=== PATIENT | male | born 1960 | race Caucasian/White ===

== ENCOUNTER 2023-03-04 11:36 | Emergency (ER) | payer OTHER ==
[~2023-03-04] VITALS: Ht 177.8 cm; Wt 100.0 kg
[2023-03-04] MEDS ORDERED: LISINOPRIL 20 MG TAB PO ONE (12:00)
[2023-03-04 13:15] LABS: Basophils # (auto) 0.1 10 ^3/uL (0-0.2); Eosinophils # (auto) 0.1 10 ^3/uL (0-0.8); Neutrophils # (auto) 4.1 10 ^3/uL (1.6-8.6); Nucleated Red Blood Cells % 0.1 %; White Blood Cell 6.5 10^3/uL (4.4-10.8)
[2023-03-04 13:17] LABS: Basophils % (auto) 1.1 % (0.0-2.0); Eosinophils % (auto) 1.1 % (0.0-7.0); Hematocrit 41.5 % (41.0-53.0); Lymphocytes # (auto) 1.5 10 ^3/uL (0.4-5.4); Lymphocytes % (auto) 22.5 % (10.0-50.0); Mean Corpuscular Hemoglobin 37.8 pg (28.0-32.0); Mean Corpuscular Hgb Conc. 33.8 g/dL (32.0-36.0); Mean Corpuscular Volume 111.6 fL (80.0-100.0); Monocytes # (auto) 0.7 10 ^3/uL (0-1.3); Monocytes % (auto) 11.6 % (0.0-12.0); Neutrophils % (auto) 63.7 % (37.0-80.0); Red Blood Cells 3.71 10^6/uL (4.5-5.90); Red Cell Distribution Width 15.2 % (11.8-14.3)
[2023-03-04 13:43] LABS: Urine Bacteria NONE SEEN /hpf (None Seen); Urine Blood Negative /uL (Negative); Urine Clarity Clear (Clear); Urine Color Yellow (Yellow); Urine Protein, UAD Negative (Negative); Urine Specific Gravity 1.009 (1.001-1.035); Urine WBC 1 /hpf (0 - 3); Urine pH 7.5 (5.0-8.0)
[2023-03-04 13:49] LABS: Alanine Aminotransferase 38 U/L (7-40); Albumin 3.5 g/dL (3.2-4.8); Alkaline Phosphatase 179 U/L (46-116); Anion Gap 10.7 (5-15); Aspartate Aminotransferase 89 U/L (13-40); BUN/Creatinine Ratio 11.1 (10.0-20.0); Blood Urea Nitrogen 7 mg/dL (9-23); Calcium 8.6 mg/dL (8.5-10.1); Carbon Dioxide 22.3 mmol/L (20-30); Chloride 106 mmol/L (98-107); Glucose 99 mg/dL (74-106); Potassium 3.6 mmol/L (3.5-5.1); Sodium 139 mmol/L (136-145)
[2023-03-04 13:50] LABS: Bilirubin, Total 6.3 mg/dL (0.2-1.0)
[2023-03-04 13:58] LABS: Erythrocyte Sedimentation Rate 7 mm/hr (0-20)
[2023-03-04] MEDS ORDERED: FUROSEMIDE 100 MG/10ML VIAL IV ONE (14:45)
[2023-03-04 19:24] VITALS: BP 183/88; PULSE 73; RESP 18; TEMP 98.1; O2SAT 95
== END 2023-03-04 17:25 | disposition left against medical advice (07) ==
LOC: ER 11:36
DX: K70.31 Alcoholic cirrhosis of liver with ascites (principal); K46.9 Unspecified abdominal hernia without obstruction or gangrene; R94.09 Abnormal results of other function studies of central nervous system; R79.89 Other specified abnormal findings of blood chemistry; R60.0 Localized edema; R16.1 Splenomegaly, not elsewhere classified; K42.9 Umbilical hernia without obstruction or gangrene; R91.1 Solitary pulmonary nodule; D69.6 Thrombocytopenia, unspecified; E80.6 Other disorders of bilirubin metabolism; I10 Essential (primary) hypertension
CPT/HCPCS: 36415; 71045; 74176; 80053; 81001; 83605; 83880; 84484; 85025; 85652; 86141; 93970; 96374; 99285; J1940

== ENCOUNTER 2023-10-22 16:17 | Inpatient (IN) | payer MEDICAID, OTHER ==
[~2023-10-22] VITALS: Ht 172.7 cm; Wt 74.0 kg
[2023-10-22] MEDS: THIAMINE 100mg/ml INJ (200mg/2ml VIAL) IV ONE (17:11)
[2023-10-22] MEDS: LORazepam 2MG/ML-1ML VIAL IV ONE ×2 (17:11→17:15)
[2023-10-22] MEDS: MAGNESIUM SULFATE 1GM/100ML 100 ML IV ONE (17:12)
[2023-10-22] MEDS: SODIUM CHLORIDE 0.9% 1,000 ML IV ONE (17:12)
[2023-10-22 17:36] LABS: Basophils # (auto) 0 10 ^3/uL (0-0.2); Eosinophils # (auto) 0 10 ^3/uL (0-0.8); Lymphocytes # (auto) 0.4 10 ^3/uL (0.4-5.4); Neutrophils # (auto) 6.5 10 ^3/uL (1.6-8.6); Nucleated Red Blood Cells % 0.1 %
[2023-10-22 17:38] LABS: Basophils % (auto) 0.2 % (0.0-2.0); Eosinophils % (auto) 0.2 % (0.0-7.0); Hematocrit 41.3 % (41.0-53.0); Hemoglobin 14.3 g/dL (13.5-17.5); Lymphocytes % (auto) 5.4 % (10.0-50.0); Mean Corpuscular Hgb Conc. 34.8 g/dL (32.0-36.0); Mean Corpuscular Volume 109.3 fL (80.0-100.0); Monocytes # (auto) 0.7 10 ^3/uL (0-1.3); Monocytes % (auto) 9.3 % (0.0-12.0); Neutrophils % (auto) 84.9 % (37.0-80.0); Red Blood Cells 3.78 10^6/uL (4.5-5.90); Red Cell Distribution Width 15.9 % (11.8-14.3); White Blood Cell 7.6 10^3/uL (4.4-10.8)
[2023-10-22 17:53] LABS: Alanine Aminotransferase 61 U/L (7-40); Albumin 2.9 g/dL (3.2-4.8); Alkaline Phosphatase 118 U/L (46-116); Anion Gap 19 (5-15); Aspartate Aminotransferase 203 U/L (13-40); BUN/Creatinine Ratio 16.1 (10.0-20.0); Bilirubin, Total 8.8 mg/dL (0.2-1.0); Blood Alcohol < 3.0 mg/dL (<10); Blood Urea Nitrogen 67 mg/dL (9-23); Calcium 8.1 mg/dL (8.5-10.1); Carbon Dioxide 16 mmol/L (20-30); Chloride 103 mmol/L (98-107); Glucose 85 mg/dL (74-106); Potassium 3.1 mmol/L (3.5-5.1); Sodium 138 mmol/L (136-145); Total Protein 6.4 g/dL (5.7-8.2)
[2023-10-22] MEDS: FUROSEMIDE 20 MG/2 ML VIAL IV ONE ×2 (18:00→22:10)
[2023-10-22] MEDS: PIPERACILLIN-TAZOB 3.375GM 100 ML IV ONE (18:30)
[2023-10-22 18:33] LABS: INR 1.69 (0.9-1.15); Partial Thromboplastin Time 35.9 SEC (24.5-34.5); Prothrombin Time 17.1 sec (9.3-11.8)
[2023-10-22] MEDS: levETIRAcetam 500 mg/100ml 100 ML IV ONE (18:43)
[2023-10-22 18:45] VITALS: PULSE 93; RESP 19; O2SAT 92
[2023-10-22 18:45] LABS: Macrocytosis Slight; Platelet Estimate Decreased
[2023-10-22 19:02] LABS: Magnesium 1.6 mg/dL (1.6-2.6)
[2023-10-22 19:30] VITALS: PULSE 89; RESP 24; O2SAT 95
[2023-10-22] MEDS: dilTIAZem 25 MG/5 ML VIAL IV ONE (20:10)
[2023-10-22] MEDS ORDERED: ACETAMINOPHEN 325 MG TAB PO PRN (21:45)
[2023-10-22] MEDS ORDERED: DOCUSATE SOD 100 MG CAP PO PRN (21:45)
[2023-10-22] MEDS ORDERED: ONDANSETRON HCL 4 MG/2 ML VIAL IV PRN (21:45)
[2023-10-22] MEDS: SODIUM CHLOR 0.9% PF (SALINE LOCK) 10ML VIAL/SYR IV SCH (22:00)
[2023-10-22] MEDS: levETIRAcetam 500 mg/100ml 100 ML IV SCH (22:08)
[2023-10-22] MEDS: CARVEDILOL 12.5 MG TAB PO SCH (22:11)
[2023-10-22 22:13] LABS: Amphetamine Screen, Urine Neg (NEGATIVE); Barbiturate Scree,Urine Neg (NEGATIVE); Benzodiazephine Screen, Urine Neg (NEGATIVE); Cannabinoid Screen, Urine Neg (NEGATIVE); Cocaine Screen, Urine Neg (NEGATIVE); Opiate Scree,Urine Neg (NEGATIVE); Phencyclidine Screen, Urine Neg (NEGATIVE)
[2023-10-22] MEDS ORDERED: NITROGLYCERIN 0.4 MG SL TAB SL PRN (22:30)
[2023-10-22] MEDS ORDERED: IBUPROFEN 600 MG TAB PO PRN (22:45)
[2023-10-22] MEDS: CALCIUM GLUC 1,000mg/50ml-NS 50 ML IV ONE (22:56)
[2023-10-23] MEDS: LORazepam 2MG/ML-1ML VIAL IV PRN (00:54)
[2023-10-23 05:13] LABS: Basophils # (auto) 0 10 ^3/uL (0-0.2); Eosinophils # (auto) 0.1 10 ^3/uL (0-0.8); Lymphocytes # (auto) 0.9 10 ^3/uL (0.4-5.4); Nucleated Red Blood Cells % 0.1 %; White Blood Cell 7.1 10^3/uL (4.4-10.8)
[2023-10-23 05:15] LABS: Basophils % (auto) 0.4 % (0.0-2.0); Hematocrit 37.9 % (41.0-53.0); Hemoglobin 12.7 g/dL (13.5-17.5); Lymphocytes % (auto) 12.2 % (10.0-50.0); Mean Corpuscular Hemoglobin 36.8 pg (28.0-32.0); Mean Corpuscular Hgb Conc. 33.4 g/dL (32.0-36.0); Mean Corpuscular Volume 110.2 fL (80.0-100.0); Monocytes # (auto) 0.7 10 ^3/uL (0-1.3); Monocytes % (auto) 10.5 % (0.0-12.0); Neutrophils # (auto) 5.4 10 ^3/uL (1.6-8.6); Neutrophils % (auto) 75.9 % (37.0-80.0); Red Blood Cells 3.44 10^6/uL (4.5-5.90); Red Cell Distribution Width 16.2 % (11.8-14.3)
[2023-10-23 05:31] LABS: Alanine Aminotransferase 51 U/L (7-40); Albumin 2.6 g/dL (3.2-4.8); Alkaline Phosphatase 99 U/L (46-116); Anion Gap 10 (5-15); Aspartate Aminotransferase 163 U/L (13-40); Bilirubin, Total 8.1 mg/dL (0.2-1.0); Blood Urea Nitrogen 61 mg/dL (9-23); Calcium 8.1 mg/dL (8.7-10.4); Carbon Dioxide 19 mmol/L (20-30); Chloride 108 mmol/L (98-107); Glucose 90 mg/dL (74-106); Potassium 3.3 mmol/L (3.5-5.1); Sodium 137 mmol/L (136-145); Total Protein 6.3 g/dL (5.7-8.2)
[2023-10-23 05:33] LABS: BUN/Creatinine Ratio 13.8 (10.0-20.0)
[2023-10-23 09:00] VITALS: PULSE 57; RESP 16; O2SAT 98
[2023-10-23 09:20] LABS: Magnesium 1.9 mg/dL (1.6-2.6)
[2023-10-23] MEDS: THIAMINE HCL 100 MG TAB PO SCH (09:42)
[2023-10-23] MEDS: B-COMPLEX W/ C & FOLIC ACID(NEPHROVITE TAB) PO SCH (09:42)
[2023-10-23] MEDS: FAMOTIDINE (10MG/ML) 2ML VL IV SCH (09:42)
[2023-10-23] MEDS: FOLIC ACID 1 MG TAB PO SCH (09:42)
[2023-10-23] MEDS: AMIODARONE HCL 200 MG TAB PO SCH (09:43)
[2023-10-23] MEDS: FUROSEMIDE 40 MG/4 ML VIAL IV SCH (10:00)
[2023-10-23] MEDS ORDERED: ASPirin 81 mg TAB PO SCH (10:00)
[2023-10-23 11:11] LABS: Protein, Urine 213.1 mg/dL (0.0-11.9)
[2023-10-23 11:22] LABS: Creatinine, Urine 245.79 mg/dL (30.0-125.0); Urine Protein/Creatinine Ratio 0.87
[2023-10-23] MEDS: POTASSIUM CHLORIDE 20 MEQ, LIDOCAINE 1% (LOCAL ANESTH.) 2 ML in SODIUM CHL 0.9% 100 ML IV ONE (11:49)
[2023-10-23] MEDS: MIDODRINE HCL 10 MG TAB PO SCH (12:00)
[2023-10-23 12:09] LABS: Urine Bacteria FEW /hpf (None Seen); Urine Blood 3+ /uL (Negative); Urine Budding Yeast FEW /hpf (None Seen); Urine Clarity Ex.Turbid (Clear); Urine Color Dark-Yellow (Yellow); Urine Hyaline Cast FEW /lpf (0 - 2); Urine Mucus FEW (None Seen); Urine Protein, UAD 2+ (Negative); Urine Specific Gravity 1.019 (1.001-1.035); Urine Urobilinogen 2 mg/dL (Negative); Urine WBC 24 /hpf (0 - 3); Urine pH 5.5 (5.0-9.0)
[2023-10-23] MEDS: D5W/SOD CHLO 0.9% 1,000 ML IV SCH (14:00)
[2023-10-23] MEDS: OCTREOTIDE ACETATE 100 MCG/ML VL SUBCUT SCH (14:05)
[2023-10-23] MEDS: ALBUMIN 25% 100 ML IV ONE (16:40)
[2023-10-23] MEDS: FOLIC ACID 1 MG, MAGNESIUM SULF SDV 50% 8 MEQ, MULTIPLE VITAMIN 10 ML, THIAMINE INJ 100... INJ SCH (18:29)
[2023-10-23 19:30] VITALS: PULSE 56; RESP 18; O2SAT 99
[2023-10-24 08:00] VITALS: PULSE 54; RESP 18; O2SAT 96
[2023-10-24] MEDS: D5W/SOD CHLO 0.9% 1,000 ML IV SCH (11:01)
[2023-10-24] MEDS: cefTRIAXone 1GM/50ML D5W 50 ML IV ONE (11:06)
[2023-10-24] MEDS: THIAMINE 100mg/ml INJ (200mg/2ml VIAL) IM ONE (11:08)
[2023-10-24] MEDS: phytonadione 2.5 MG in SODIUM CHL 0.9% 50 ML IV ONE (12:35)
[2023-10-24] MEDS: LACTULOSE 20Gm/30ML SOLN NG SCH (13:39)
[2023-10-24] MEDS: DOPamine 1600MCG/ML D5W 250 ML IV SCH (13:52)
[2023-10-24 19:45] VITALS: PULSE 61; RESP 16; O2SAT 98
[2023-10-24] MEDS ORDERED: LACTULOSE 20Gm/30ML SOLN PO SCH (22:00)
[2023-10-25 06:59] LABS: Basophils # (auto) 0 10 ^3/uL (0-0.2); Basophils % (auto) 0.7 % (0.0-2.0); Eosinophils # (auto) 0.2 10 ^3/uL (0-0.8); Lymphocytes # (auto) 0.8 10 ^3/uL (0.4-5.4); Monocytes # (auto) 1.1 10 ^3/uL (0-1.3); Neutrophils # (auto) 4.1 10 ^3/uL (1.6-8.6)
[2023-10-25 07:02] LABS: Eosinophils % (auto) 3.7 % (0.0-7.0); Lymphocytes % (auto) 12.5 % (10.0-50.0); Mean Corpuscular Hemoglobin 37.1 pg (28.0-32.0); Mean Corpuscular Hgb Conc. 33.2 g/dL (32.0-36.0); Mean Corpuscular Volume 111.8 fL (80.0-100.0); Monocytes % (auto) 17.7 % (0.0-12.0); Neutrophils % (auto) 65.4 % (37.0-80.0); Nucleated Red Blood Cells % 0.1 %; Red Blood Cells 3.49 10^6/uL (4.5-5.90); Red Cell Distribution Width 16.5 % (11.8-14.3); White Blood Cell 6.2 10^3/uL (4.4-10.8)
[2023-10-25 07:20] LABS: Alanine Aminotransferase 58 U/L (7-40); Alkaline Phosphatase 102 U/L (46-116); Anion Gap 14 (5-15); Aspartate Aminotransferase 144 U/L (13-40); BUN/Creatinine Ratio 20.9 (10.0-20.0); Calcium 7.5 mg/dL (8.5-10.1); Carbon Dioxide 16 mmol/L (20-30); Chloride 115 mmol/L (98-107); Glucose 143 mg/dL (74-106)
[2023-10-25 07:21] LABS: Bilirubin, Total 8.4 mg/dL (0.2-1.0); Total Protein 6.5 g/dL (5.7-8.2)
[2023-10-25 07:30] VITALS: PULSE 65; RESP 18; O2SAT 93
[2023-10-25 07:32] LABS: Blood Urea Nitrogen 88 mg/dL (9-23); Sodium 145 mmol/L (136-145)
[2023-10-25 07:34] LABS: INR 1.36 (0.9-1.15)
[2023-10-25] MEDS: D5W/SOD CHLO 0.9% 1,000 ML IV SCH ×2 (09:00→10:00)
[2023-10-25 09:09] LABS: Base Excess -10.8 mmol/L (-2.0-2.0)
[2023-10-25] MEDS: cefTRIAXone 1GM/50ML D5W 50 ML IV SCH (09:57)
[2023-10-25] MEDS: LACTULOSE 20Gm/30ML SOLN NG SCH (09:58)
[2023-10-25] MEDS: FUROSEMIDE 40 MG/4 ML VIAL IV ONE (09:59)
[2023-10-25] MEDS: AZITHROMYCIN 500MG/ 250ML 250 ML IV SCH (10:37)
[2023-10-25] MEDS: chlordiazePOXIDE HCL 5 MG CAP PO SCH (12:00)
[2023-10-25] MEDS: D5W/SOD CHL 0.45% 1,000 ML IV SCH (14:00)
[2023-10-25] MEDS: PHYTONADIONE (VIT K)10 MG/ML 1ML VIAL SUBCUT SCH (14:32)
[2023-10-25] MEDS: SODIUM BICARB 50mEq/50ml Vial 50 ML in D5W/SOD CHL 0.45% 1,000 ML IV SCH (15:00)
[2023-10-25 19:40] VITALS: PULSE 58; RESP 13; O2SAT 100
[2023-10-25] MEDS: MORPHINE SULFATE INJ 2 MG/ml SYRG IV PRN (22:45)
[2023-10-26 04:48] LABS: Hematocrit 38.1 % (41.0-53.0); Hemoglobin 12.5 g/dL (13.5-17.5); Mean Corpuscular Hgb Conc. 32.8 g/dL (32.0-36.0); Mean Corpuscular Volume 112.8 fL (80.0-100.0); Red Blood Cells 3.37 10^6/uL (4.5-5.90); White Blood Cell 6.7 10^3/uL (4.4-10.8)
[2023-10-26 04:50] LABS: Basophils % (manual) 0 (0.0-2.0); Blast Cells 0; Metamyelocytes % 0; Myelocytes % 0; Promyelocytes % 0; Reactive Lymphocytes 0
[2023-10-26 04:56] LABS: INR 1.39 (0.9-1.15); Prothrombin Time 14.3 sec (9.3-11.8)
[2023-10-26 05:03] LABS: Alanine Aminotransferase 70 U/L (7-40); Alkaline Phosphatase 104 U/L (46-116); Anion Gap 13 (5-15); Calcium 7.6 mg/dL (8.5-10.1); Carbon Dioxide 19 mmol/L (20-30); Chloride 117 mmol/L (98-107); Glucose 119 mg/dL (74-106); Sodium 149 mmol/L (136-145)
[2023-10-26 05:05] LABS: Albumin 2.9 g/dL (3.2-4.8); Aspartate Aminotransferase 160 U/L (13-40); Bilirubin, Total 10.1 mg/dL (0.2-1.0); Creatine Kinase IFCC 735 U/L (46-171); Total Protein 6.8 g/dL (5.7-8.2)
[2023-10-26 05:20] LABS: BUN/Creatinine Ratio 22.6 (10.0-20.0)
[2023-10-26 05:24] LABS: Blood Urea Nitrogen 78 mg/dL (9-23)
[2023-10-26 06:27] LABS: Band Neutrophils % (manual) 3; Eosinophils % (manual) 3 (0-7); Lymphocytes % (manual) 11 (10.0-50.0); Macrocytosis Marked; Monocytes % (manual) 19 (0-12); Platelet Estimate Decreased
[2023-10-26 08:24] VITALS: PULSE 56; RESP 14; O2SAT 99
[2023-10-26 08:39] LABS: Hepatitis B Surface Antigen Negative (Negative)
[2023-10-26 09:01] LABS: Hepatitis C Antibody Negative (Negative)
[2023-10-26 09:08] LABS: Hepatitis B Core Total AB Negative (Negative)
[2023-10-26 09:41] LABS: Hepatitis A Total Antibody Positive (Negative); Hepatitis B Surface Antibody Negative (Negative); Hepatitis B Surface Antigen Negative (Negative); Hepatitis C Antibody Negative (Negative)
[2023-10-26] MEDS: ALBUMIN 25% 50 ML IV SCH (10:57)
[2023-10-26 19:35] VITALS: PULSE 54; RESP 12; O2SAT 99
[2023-10-27 04:52] LABS: Anion Gap 8 (5-15); Carbon Dioxide 20 mmol/L (20-30); Chloride 122 mmol/L (98-107); Potassium 4.1 mmol/L (3.5-5.1); Sodium 150 mmol/L (136-145)
[2023-10-27 04:58] LABS: Glucose 132 mg/dL (74-106)
[2023-10-27 05:01] LABS: Blood Urea Nitrogen 67 mg/dL (9-23)
[2023-10-27 05:07] LABS: BUN/Creatinine Ratio 24.2 (10.0-20.0)
[2023-10-27 07:35] VITALS: PULSE 58; RESP 16; O2SAT 98
[2023-10-27] MEDS: THIAMINE 100mg/ml INJ (200mg/2ml VIAL) IV SCH (10:39)
[2023-10-27] MEDS: FOLIC ACID 1 MG in D5W 5% 50 ML INJ SCH (10:40)
[2023-10-27] MEDS: D5W 5% 1,000 ML IV SCH (14:05)
[2023-10-27] MEDS ORDERED: LORazepam 2MG/ML-1ML VIAL IV PRN (14:45)
[2023-10-27 19:45] VITALS: PULSE 58; RESP 12; O2SAT 95
[2023-10-27] MEDS: LACTULOSE 10g/15ml SOLN 473ML PR SCH (23:51)
[2023-10-28 05:22] LABS: Chloride 124 mmol/L (98-107); Sodium 154 mmol/L (136-145)
[2023-10-28 05:23] LABS: Anion Gap 8 (5-15); Calcium 8.3 mg/dL (8.7-10.4); Carbon Dioxide 22 mmol/L (20-30)
[2023-10-28 05:28] LABS: Blood Urea Nitrogen 60 mg/dL (9-23); Glucose 148 mg/dL (74-106)
[2023-10-28] MEDS ORDERED: LORazepam 2MG/ML-1ML VIAL IV PRN (05:30)
[2023-10-28] MEDS: LORazepam 2MG/ML-1ML VIAL IV PRN (05:35)
[2023-10-28] MEDS: cefTRIAXone 1GM/50ML D5W 50 ML IV ONE (09:23)
[2023-10-28 10:28] VITALS: O2SAT 96
[2023-10-28] MEDS: D5W 5% 1,000 ML IV SCH (17:18)
[2023-10-28 19:30] VITALS: PULSE 53; RESP 11; O2SAT 98
[2023-10-29 05:29] LABS: Chloride 124 mmol/L (98-107); Potassium 3.9 mmol/L (3.5-5.1); Sodium 156 mmol/L (136-145)
[2023-10-29 05:35] LABS: Calcium 8.3 mg/dL (8.5-10.1)
[2023-10-29 05:40] LABS: Blood Urea Nitrogen 58 mg/dL (9-23); Glucose 139 mg/dL (74-106)
[2023-10-29 05:56] LABS: BUN/Creatinine Ratio 28.3 (10.0-20.0)
[2023-10-29 06:53] LABS: Anion Gap 8 (5-15); Carbon Dioxide 24 mmol/L (20-30)
[2023-10-29 08:00] VITALS: PULSE 74; RESP 24; O2SAT 98
[2023-10-29] MEDS: D5W 5% 1,000 ML IV SCH (08:00)
[2023-10-29] MEDS: LACTULOSE 20Gm/30ML SOLN PO SCH (13:33)
[2023-10-29 19:30] VITALS: PULSE 64; RESP 21; O2SAT 92
[2023-10-29 22:45] VITALS: BP 125/70; PULSE 52; RESP 18; TEMP 98.2; O2SAT 92
[2023-10-29 23:56] VITALS: BP 125/70; PULSE 55; RESP 18; TEMP 98.2; O2SAT 92
[2023-10-30] VITALS (7 sets, daily range): BP systolic 122–167; BP diastolic 51–111; PULSE 59–73; RESP 17–20; TEMP 97.8–98.2; O2SAT 93–96
[2023-10-30] MEDS ORDERED: LISI-285 PO (00:50)
[2023-10-30] MEDS: OCTREOTIDE ACETATE 100 MCG/ML VL SUBCUT SCH (00:52)
[2023-10-30 05:52] LABS: Anion Gap 10 (5-15); Carbon Dioxide 23 mmol/L (20-30); Chloride 120 mmol/L (98-107); Potassium 3.8 mmol/L (3.5-5.1); Sodium 153 mmol/L (136-145)
[2023-10-30 05:54] LABS: Calcium 8.6 mg/dL (8.7-10.4)
[2023-10-30 05:59] LABS: Glucose 134 mg/dL (74-106)
[2023-10-30 06:05] LABS: BUN/Creatinine Ratio 30.7 (10.0-20.0); Blood Urea Nitrogen 54 mg/dL (9-23)
[2023-10-30] MEDS: HYDROcodone-ACET 5/325MG TAB PO PRN (16:01)
[2023-10-31] VITALS (8 sets, daily range): BP systolic 146–178; BP diastolic 70–86; PULSE 61–66; RESP 18–20; TEMP 98.3–98.9; O2SAT 95–97
[2023-10-31 10:46] LABS: Basophils # (auto) 0.1 10 ^3/uL (0-0.2); Basophils % (auto) 0.9 % (0.0-2.0); Eosinophils # (auto) 0.3 10 ^3/uL (0-0.8); Eosinophils % (auto) 2.5 % (0.0-7.0); Hematocrit 38.2 % (41.0-53.0); Hemoglobin 12.8 g/dL (13.5-17.5); Lymphocytes % (auto) 9.5 % (10.0-50.0); Mean Corpuscular Hemoglobin 37.3 pg (28.0-32.0); Mean Corpuscular Hgb Conc. 33.5 g/dL (32.0-36.0); Mean Corpuscular Volume 111.5 fL (80.0-100.0); Monocytes % (auto) 9.1 % (0.0-12.0); Neutrophils # (auto) 8.5 10 ^3/uL (1.6-8.6); Nucleated Red Blood Cells % 0.2 %; Red Blood Cells 3.42 10^6/uL (4.5-5.90); Red Cell Distribution Width 17.7 % (11.8-14.3); White Blood Cell 10.9 10^3/uL (4.4-10.8)
[2023-10-31 11:03] LABS: Albumin 2.7 g/dL (3.2-4.8); Alkaline Phosphatase 98 U/L (46-116); Anion Gap 8 (5-15); Bilirubin, Total 25.2 mg/dL (0.2-1.0); Calcium 8.7 mg/dL (8.7-10.4); Carbon Dioxide 22 mmol/L (20-30); Chloride 122 mmol/L (98-107); Glucose 123 mg/dL (74-106); Potassium 4.1 mmol/L (3.5-5.1); Sodium 152 mmol/L (136-145)
[2023-10-31 11:08] LABS: Alanine Aminotransferase 97 U/L (7-40); Aspartate Aminotransferase 197 U/L (13-40); BUN/Creatinine Ratio 23.3 (10.0-20.0); Total Protein 6.6 g/dL (5.7-8.2)
[2023-10-31 11:14] LABS: Blood Urea Nitrogen 35 mg/dL (9-23)
[2023-10-31 12:28] LABS: Macrocytosis Marked; Platelet Estimate Decreased
[2023-11-01] VITALS (11 sets, daily range): BP systolic 122–167; BP diastolic 40–87; PULSE 59–69; RESP 20–24; TEMP 97–99.3; O2SAT 93–95
[2023-11-01 06:12] LABS: Anion Gap 9 (5-15); Carbon Dioxide 22 mmol/L (20-30); Chloride 123 mmol/L (98-107); Potassium 3.7 mmol/L (3.5-5.1); Sodium 154 mmol/L (136-145)
[2023-11-01 06:13] LABS: Calcium 8.7 mg/dL (8.7-10.4)
[2023-11-01 06:18] LABS: Glucose 94 mg/dL (74-106)
[2023-11-01 08:32] LABS: BUN/Creatinine Ratio 18.1 (10.0-20.0); Blood Urea Nitrogen 29 mg/dL (9-23)
[2023-11-01] MEDS: D5W 5% 1,000 ML IV SCH (15:00)
[2023-11-02 05:00] VITALS: BP 178/75; PULSE 61; RESP 20; TEMP 98.2; O2SAT 92
[2023-11-02 09:23] VITALS: BP 174/58; PULSE 56; RESP 20; TEMP 98; O2SAT 95
[2023-11-02 12:53] LABS: Basophils # (auto) 0.2 10 ^3/uL (0-0.2); Eosinophils # (auto) 0.3 10 ^3/uL (0-0.8); Hemoglobin 12.6 g/dL (13.5-17.5); Monocytes # (auto) 1.5 10 ^3/uL (0-1.3); Monocytes % (auto) 11.9 % (0.0-12.0); Red Cell Distribution Width 18.6 % (11.8-14.3)
[2023-11-02 13:00] VITALS: BP 133/65; PULSE 59; RESP 20; TEMP 98.1; O2SAT 95
[2023-11-02 13:14] LABS: Basophils % (auto) 1.9 % (0.0-2.0); Eosinophils % (auto) 2.5 % (0.0-7.0); Hematocrit 37.8 % (41.0-53.0); Lymphocytes # (auto) 1.2 10 ^3/uL (0.4-5.4); Lymphocytes % (auto) 9.1 % (10.0-50.0); Mean Corpuscular Hemoglobin 37.2 pg (28.0-32.0); Mean Corpuscular Hgb Conc. 33.3 g/dL (32.0-36.0); Mean Corpuscular Volume 111.8 fL (80.0-100.0); Neutrophils # (auto) 9.5 10 ^3/uL (1.6-8.6); Neutrophils % (auto) 74.6 % (37.0-80.0); Nucleated Red Blood Cells % 0.1 %; Red Blood Cells 3.38 10^6/uL (4.5-5.90); White Blood Cell 12.7 10^3/uL (4.4-10.8)
[2023-11-02 13:26] LABS: Albumin 2.5 g/dL (3.2-4.8); Alkaline Phosphatase 103 U/L (46-116); Anion Gap 8 (5-15); Calcium 8.4 mg/dL (8.5-10.1); Carbon Dioxide 21 mmol/L (20-30); Chloride 119 mmol/L (98-107); Glucose 160 mg/dL (74-106); Potassium 3.3 mmol/L (3.5-5.1)
[2023-11-02 13:27] LABS: Bilirubin, Total 29.3 mg/dL (0.2-1.0)
[2023-11-02 13:37] LABS: Alanine Aminotransferase 89 U/L (7-40); Aspartate Aminotransferase 191 U/L (13-40); BUN/Creatinine Ratio 15.6 (10.0-20.0); Blood Urea Nitrogen 26 mg/dL (9-23); Total Protein 6.4 g/dL (5.7-8.2)
[2023-11-02 13:42] LABS: Sodium 148 mmol/L (136-145)
[2023-11-02 17:00] VITALS: BP 139/55; PULSE 60; RESP 18; O2SAT 93
[2023-11-02 20:00] VITALS: BP 120/54; PULSE 58; RESP 17; TEMP 98.2; O2SAT 96
[2023-11-02 21:52] VITALS: BP 120/54; PULSE 53; RESP 17; TEMP 98.1; O2SAT 96
[2023-11-03 01:00] VITALS: BP 136/64; PULSE 59; RESP 18; TEMP 98.1; O2SAT 95
[2023-11-03] MEDS: OCTREOTIDE ACETATE 100 MCG/ML VL ONE (06:54)
[2023-11-03 09:00] VITALS: BP 156/71; PULSE 58; RESP 19; TEMP 98; O2SAT 94
[2023-11-03 13:00] VITALS: BP 125/46; PULSE 51; RESP 18; TEMP 98; O2SAT 94
[2023-11-03] MEDS: POTASSIUM CHL 20 Meq TABLET PO ONE (13:51)
[2023-11-03 17:00] VITALS: BP 124/57; PULSE 57; RESP 18; TEMP 97.4; O2SAT 97
[2023-11-03 20:00] VITALS: PULSE 64
[2023-11-03 21:00] VITALS: BP 155/78; PULSE 21; RESP 61; TEMP 98; O2SAT 94
[2023-11-04] VITALS (7 sets, daily range): BP systolic 123–154; BP diastolic 54–72; PULSE 52–63; RESP 17–20; TEMP 97.3–98.6; O2SAT 93–97
[2023-11-04 07:00] LABS: INR 1.56 (0.9-1.15)
[2023-11-04 07:05] LABS: Albumin 2.4 g/dL (3.2-4.8); Alkaline Phosphatase 112 U/L (46-116); Anion Gap 8 (5-15); Bilirubin, Total 29.3 mg/dL (0.2-1.0); Calcium 8.4 mg/dL (8.5-10.1); Carbon Dioxide 22 mmol/L (20-30); Chloride 115 mmol/L (98-107); Glucose 119 mg/dL (74-106); Potassium 3.5 mmol/L (3.5-5.1); Sodium 145 mmol/L (136-145)
[2023-11-04 07:32] LABS: Alanine Aminotransferase 86 U/L (7-40); Aspartate Aminotransferase 202 U/L (13-40); BUN/Creatinine Ratio 12.4 (10.0-20.0); Blood Urea Nitrogen 26 mg/dL (9-23); Total Protein 6.3 g/dL (5.7-8.2)
[2023-11-04] MEDS: methylPREDNISolone SOD SUCC 40 MG/ML VL IV SCH (09:20)
[2023-11-04] MEDS: POTASSIUM CHL 20 Meq TABLET PO SCH (09:25)
[2023-11-04] MEDS: URSODIOL 300 MG CAP PO SCH (22:00)
[2023-11-05 05:00] VITALS: BP 129/58; PULSE 56; RESP 16; TEMP 97.8; O2SAT 98
[2023-11-05] MEDS ORDERED: FOLI-119 PO (10:51)
[2023-11-05] MEDS ORDERED: THIA100T13 PO (10:51)
[2023-11-05] MEDS ORDERED: CHL25C PO (10:51)
[2023-11-05] MEDS ORDERED: MIDO10TA3 PO (10:51)
[2023-11-05] MEDS ORDERED: URSO300C2 PO (10:51)
[2023-11-05] MEDS ORDERED: PANT40T PO (10:51)
[2023-11-05] MEDS ORDERED: PRED20TA2 PO (10:51)
[2023-11-05] MEDS ORDERED: AMIO200T33 PO (10:51)
[2023-11-05] MEDS ORDERED: PAR20T PO (10:51)
[2023-11-05] MEDS ORDERED: LACT10PA2 PO (10:56)
[2023-11-05 13:00] VITALS: BP 147/72; PULSE 56; RESP 17; TEMP 98
== END 2023-11-05 20:10 | disposition hospice, home (50) | DRG 100 ==
LOC: ER 16:17 → EDBD 16:17 → TELE 22:17 → WEST WING 10-29 22:20
PROVIDERS: ADMIT Family Medicine; ATTEND Family Medicine
DX: G40.401 Other generalized epilepsy and epileptic syndromes, not intractable, with status epilepticus (principal); E43 Unspecified severe protein-calorie malnutrition; G93.41 Metabolic encephalopathy; K76.7 Hepatorenal syndrome; D68.9 Coagulation defect, unspecified; N17.9 Acute kidney failure, unspecified; M62.82 Rhabdomyolysis; N39.0 Urinary tract infection, site not specified; E87.0 Hyperosmolality and hypernatremia; F10.131 Alcohol abuse with withdrawal delirium; K70.40 Alcoholic hepatic failure without coma; I50.9 Heart failure, unspecified; D69.6 Thrombocytopenia, unspecified; E88.09 Other disorders of plasma-protein metabolism, not elsewhere classified; D53.9 Nutritional anemia, unspecified; E55.9 Vitamin D deficiency, unspecified; I48.0 Paroxysmal atrial fibrillation; K76.82 Hepatic encephalopathy; K70.31 Alcoholic cirrhosis of liver with ascites; S00.83XA Contusion of other part of head, initial encounter; M47.812 Spondylosis without myelopathy or radiculopathy, cervical region; Z66 Do not resuscitate; I11.0 Hypertensive heart disease with heart failure; F17.200 Nicotine dependence, unspecified, uncomplicated; E86.0 Dehydration; W18.39XA Other fall on same level, initial encounter; Y90.9 Presence of alcohol in blood, level not specified; E66.01 Morbid (severe) obesity due to excess calories; E87.6 Hypokalemia; Y93.89 Activity, other specified; Y92.89 Other specified places as the place of occurrence of the external cause; Y99.8 Other external cause status; Z68.24 Body mass index [BMI] 24.0-24.9, adult; Z78.1 Physical restraint status
CPT/HCPCS: 36415; 36600; 70450; 71045; 72125; 76700; 80048; 80053; 80061; 80307; 80320; 81001; 82140; 82306; 82550; 82570; 82805; 82962; 83036; 83735; 83880; 83970; 84100; 84156; 84300; 84443; 85007; 85025; 85027; 85610; 85730; 86704; 86706; 86708; 86803; 86850; 86900; 86901; 87086; 87340; 93005; 93306; 97163; A4565; G0378; J2001; J2543; J3430; J3490; J7060; P9047